=== PATIENT | female | born 1980 | race Caucasian/White ===

== ENCOUNTER 2019-12-30 09:43 | Outpatient (CLI) | payer OTHER, SELFPAY ==
--- NOTE | ~2019-12-30 | US_ITS ---
EXAMINATION: US OB <=14 wk fetus w TV DATE: 12/30/2019 10:39 INDICATION: Threatened . TECHNIQUE: Real-time transabdominal and transvaginal pelvic ultrasound was performed. COMPARISON: None. FINDINGS: TRANSABDOMINAL ULTRASOUND: The uterus measures 12.2 x 5.1 x 4.2 cm. TRANSVAGINAL ULTRASOUND: There is an intrauterine gestational sac. A yolk sac is identified. The fet al crown rump length measures 6 mm, which correlates with an estimated gestational age of 6 weeks and 3 day(s) (+/-) 4 day(s). heart motion is not detectable by M-mode Doppler. There is a small isaacs bchorionic hematoma. The right ovary measures 2.3 x 1.9 x 1.3 cm. The left ovary measures 3.2 x 1.9 x 2.4 cm. There is no free fluid in the pelvis. IMPRESSION: 1. Single intrauterine with estimated date of delivery of 08/21/2020. The lack of detectab le heart motion is not reassuring, but may sometimes be normal at this size. Serial beta-hCGs a re recommended. 2. Small subchorionic hematoma. Reviewed, dictated and finalized at location A. HER OPERATOR IMPRESSION: 1. Single intrauterine with estimated date of delivery of 08/21/2020 . The lack of detectable heart motion is not reassuring, but may sometime s be normal at this size. Serial beta-hCGs are recommended. 2. Small subchorionic hematoma.
== END 2019-12-30 09:44 | disposition home or self-care (01) ==
LOC: ANHIMG 09:44
PROVIDERS: PCP Family Medicine; Visit Provider Obstetrics & Gynecology
DX: O20.0 Threatened abortion (principal)
CPT/HCPCS: 76801; 76817

== ENCOUNTER → 2020-09-12 17:52 | Outpatient (CLI) | payer BC, SELFPAY ==
--- NOTE | ~2020-09-12 | MM_ITS ---
EXAMINATION: MM screening hunter BI w marva HISTORY: Screening TECHNIQUE: Craniocaudal and mediolateral oblique 3-D tomosynthesis images were obtained and synthetic 2-D images were generated. CAD analysis was submitted and interpreted. COMPARISON: 10/15/2018 BREAST PARENCHYMAL COMPOSITION: The breasts are heterogeneously dense, which may obscure small masses . FINDINGS: There is no evidence of suspicious mass, calcification, or architectural distortion to sugg est malignancy in either breast. There has been no suspicious interval change. IMPRESSION: 1. No mammographic evidence of malignancy. 2. Recommend routine screening mammography in one year. BI-RADS Category 1: Negative Reviewed, dictated and finalized at location A. POUNCER MACHINE OPERATOR
== END ==
PROVIDERS: Visit Provider Obstetrics & Gynecology
DX: Z12.31 Encounter for screening mammogram for malignant neoplasm of breast (principal)
CPT/HCPCS: 77063; 77067

== ENCOUNTER → 2021-12-27 15:26 | Outpatient (CLI) | payer OTHER, SELFPAY ==
--- NOTE | ~2021-12-27 | MM_ITS ---
EXAMINATION: MM screening hunter BI w marva HISTORY: Screening mammogram TECHNIQUE: Craniocaudal and mediolateral oblique 3-D tomosynthesis images were obtained and synthetic 2-D images were generated. CAD analysis was submitted and interpreted. COMPARISON: 09/2020, 10/15/2018 bilateral screening mammogram examinations BREAST PARENCHYMAL COMPOSITION: The breasts are heterogeneously dense, which may obscure small masses . FINDINGS: There is no evidence of suspicious mass, calcification, or architectural distortion to sugg est malignancy in either breast. There has been no suspicious interval change. IMPRESSION: 1. No mammographic evidence of malignancy. 2. Recommend routine screening mammography in one year. BI-RADS Category 1: Negative Reviewed, dictated and finalized at location A. K BROKER
== END ==
PROVIDERS: Visit Provider Obstetrics & Gynecology
DX: Z12.31 Encounter for screening mammogram for malignant neoplasm of breast (principal)
CPT/HCPCS: 77063; 77067

== ENCOUNTER → 2023-08-21 16:12 | Outpatient (CLI) | payer OTHER, SELFPAY ==
--- NOTE | ~2023-08-21 | MM_ITS ---
EXAMINATION: MM screening hunter BI w marva HISTORY: Screening TECHNIQUE: Craniocaudal and mediolateral oblique 3-D tomosynthesis images were obtained and synthetic 2-D images were generated. CAD analysis was submitted and interpreted. COMPARISON: Comparison to multiple prior studies sequentially, with oldest reviewed study dated 05/2018. BREAST PARENCHYMAL COMPOSITION: The breasts are heterogeneously dense, which may obscure small masses FINDINGS: There are developing bilateral breast asymmetries. There is a possible new mass medially in the left breast on CC view. There are no suspicious calcifications. IMPRESSION: 1. Developing bilateral breast asymmetries. 2. Additional mammographic views and possible breast ultrasound are recommended. BI-RADS Category 0: Incomplete: Needs additional imaging evaluation. Reviewed, dictated and finalized at location A. IMPRESSION: 1. Developing bilateral breast asymmetries. 2. Additional mammographic views and possible breast ultrasound are recommended . BI-RADS Category 0: Incomplete: Needs additional imaging evaluation.
== END ==
PROVIDERS: PCP Obstetrics & Gynecology; Visit Provider Obstetrics & Gynecology
DX: Z12.31 Encounter for screening mammogram for malignant neoplasm of breast (principal); R92.8 Other abnormal and inconclusive findings on diagnostic imaging of breast
CPT/HCPCS: 77063; 77067

== ENCOUNTER → 2023-09-15 14:16 | Outpatient (CLI) | payer OTHER, SELFPAY ==
--- NOTE | ~2023-09-15 | MMUS_ITS ---
EXAMINATION: MM diagnostic hunter BI w marva, US breast BI complete HISTORY: Follow-up bilateral breast asymmetries TECHNIQUE: Additional 3-D tomosynthesis images of the breasts were performed and synthetic 2-D images were generated. CAD analysis was submitted and interpreted. High resolution bilateral complete breas t ultrasound was performed. COMPARISON: Comparison to multiple prior studies sequentially, with oldest reviewed study dated 05/2028. BREAST PARENCHYMAL COMPOSITION: The breasts are heterogeneously dense, which may obscure small masses FINDINGS: MAMMOGRAPHIC FINDINGS: There are no suspicious masses, calcifications or architectural distortion in the right breast to sug gest malignancy. There are persistent asymmetries centered in the upper aspect of the left breast. ULTRASOUND: Complete bilateral US of all 4 quadrants of the breasts and retroareolar region was reviewed. Right breast: At 8:00 near the areola there is a 7 mm cyst. At 9:00 near the areola there is a cluste r of small cysts. At 9:00, 4.5 cm from the nipple there is an oval hypoechoic nodule measuring 3 mm w ith parallel orientation, no posterior features and no internal vascularity. Near the nipple there is a 5 mm cyst. Left breast: There the nipple there are multiple cysts, largest measuring 12 mm. At 12:00 near the ni pple there is a cluster of cysts. There is a cluster of microcysts at 12:00 near the areola measuring 9 mm. At 1:00, 4.5 cm from the nipple there is an oval hypoechoic 5 mm mass with posterior acoustic enhancement, low-level internal echoes and no internal vascularity. At 3:00, 4 cm from the nipple the re is an oval hypoechoic mass measuring 3 mm, Likely benign. At 6:00, 4 cm from the nipple there is a 3 mm cyst. There are multiple additional cysts of the left breast. IMPRESSION: 1. Probable benign bilateral sonographic masses. 2. Recommend 6 month follow-up diagnostic bilateral mammogram and targeted bilateral breast ultrasoun d. BI-RADS category 3, probably benign findings. Reviewed, dictated and finalized at location A. BREAKING MACHINE OPERATOR IMPRESSION: 1. Probable benign bilateral sonographic masses. 2. Recommend 6 month follow-up diagnostic bilateral mammogram and targeted bila teral breast ultrasound. BI-RADS category 3, probably benign findings.
== END ==
PROVIDERS: PCP Obstetrics & Gynecology; Visit Provider Obstetrics & Gynecology
DX: R92.8 Other abnormal and inconclusive findings on diagnostic imaging of breast (principal)
CPT/HCPCS: 76641; 77062; 77066; G0279

== ENCOUNTER 2024-01-29 12:33 | Outpatient (CLI) | payer OTHER, SELFPAY ==
--- NOTE | ~2024-01-29 | MR_ITS ---
MR breast BI wo/w con 01/29/2024 14:41 CDT INDICATION: Bilateral breast cysts. TECHNIQUE: MRI of the breasts perform using standard protocol pre-and post IV contrast with the follo wing sequences: Axial T2 STIR, axial T1, axial vibrant T1 with fat suppression precontrast and multip hasic postcontrast. 16 cc MultiHance administered intravenously. COMPARISON: Comparison to multiple prior studies sequentially, with oldest reviewed study dated 02/2020. FINDINGS: There are no abnormalities on the precontrast sequences. There are multiple bilateral breas t cysts. There is mild background parenchymal enhancement. No enhancing lesions following contrast a dministration. No areas of enhancement meeting threshold criteria on CAD analysis. No evidence of s ignal abnormalities in the axillary or internal mammary node distributions. LEFT BREAST: No signal abnormalities on precontrast sequences. There are multiple bilateral breast c ysts. There is mild background parenchymal enhancement. No enhancing lesions following contrast adm inistration. No areas of enhancement meeting threshold criteria on CAD analysis. No evidence of si gnal abnormalities in the axillary or internal mammary node distributions.] IMPRESSION: 1: No suspicious abnormal enhancing masses in either breast to suggest malignancy. Bilateral breast cysts. Recommend follow-up Limited bilateral breast ultrasound to assess stability of probable benign masses seen on prior ultrasound. BI-RADS CATEGORY 3-PROBABLY BENIGN FINDING RECOMMENDATION: 6 month follow up recommended. Reviewed, dictated and finalized at location A. IMPRESSION: 1: No suspicious abnormal enhancing masses in either breast to suggest maligna ncy. Bilateral breast cysts. Recommend follow-up Limited bilateral breast ultrasound to assess stability of probable benign masses seen on prior ultrasound. BI-RADS CATEGORY 3-PROBABLY BENIGN FINDING RECOMMENDATION: 6 month follow up recommended.
== END 2024-01-29 12:34 | disposition home or self-care (01) ==
PROVIDERS: PCP Obstetrics & Gynecology; Visit Provider Surgery
DX: Z12.31 Encounter for screening mammogram for malignant neoplasm of breast (principal); Z91.89 Other specified personal risk factors, not elsewhere classified; R92.8 Other abnormal and inconclusive findings on diagnostic imaging of breast
CPT/HCPCS: 77049; A9577; C8908

== ENCOUNTER 2024-06-07 08:09 | Outpatient (CLI) | payer OTHER, SELFPAY ==
--- NOTE | ~2024-06-07 | US_ITS ---
US breast BI limited INDICATION: Follow-up bilateral breast masses. TECHNIQUE: Dedicated Limited bilateral breast ultrasound COMPARISON: 09/15/2023 FINDINGS: Right breast: There are multiple simple cysts of the right breast, largest in the subareolar location at 8:00 measuring 9 mm. No suspicious solid or vascular masses. Left breast: There are multiple simple cysts of the left breast, largest at 12:00 in the subareolar l ocation measuring 12 mm. No suspicious masses in the left breast. IMPRESSION: 1: Benign bilateral breast cysts. No sonographic evidence for malignancy. Routine yearly screening mammogram and regular clinical breast examination are recommended. BI-RADS CATEGORY 2 - BENIGN FINDINGS Reviewed, dictated and finalized at location B.
== END 2024-06-07 08:10 ==
PROVIDERS: PCP Surgery; Visit Provider Surgery
DX: N60.11 Diffuse cystic mastopathy of right breast (principal); N60.12 Diffuse cystic mastopathy of left breast; Z91.89 Other specified personal risk factors, not elsewhere classified
CPT/HCPCS: 76642

== ENCOUNTER 2024-10-21 08:09 | Outpatient (CLI) | payer OTHER, SELFPAY ==
--- NOTE | ~2024-10-21 | MMUS_ITS ---
EXAMINATION: MM diagnostic hunter BI w marva, US breast BI complete HISTORY: Six-month follow-up bilateral breast masses TECHNIQUE: Additional 3-D tomosynthesis images of the breasts were performed and synthetic 2-D images were generated. CAD analysis was submitted and interpreted. High resolution bilateral complete breas t ultrasound was performed. COMPARISON: Comparison to multiple prior studies sequentially, with oldest reviewed study dated 05/2018. BREAST PARENCHYMAL COMPOSITION: Dense: The breasts are heterogeneously dense, which may obscure small masses FINDINGS: MAMMOGRAPHIC FINDINGS: There are obscured masses bilaterally in the upper outer quadrant of both breasts, not significantly changed from 09/15/2023. ULTRASOUND: Complete US of all 4 quadrants of the breast/s and retroareolar region was reviewed. There are bilate ral simple cysts of the breast corresponding to the areas of mammographic abnormality. No suspicious masses to suggest malignancy. IMPRESSION: 1. No evidence for malignancy in either breast. 2. Routine yearly screening mammogram and regular clinical breast examination are recommended. BI-RADS Category 2: Benign finding(s). Reviewed, dictated and finalized at location B. O STATION OPERATOR IMPRESSION: 1. No evidence for malignancy in either breast. 2. Routine yearly screening mammogram and regular clinical breast examination a re recommended. BI-RADS Category 2: Benign finding(s).
== END 2024-10-21 08:10 | disposition home or self-care (01) ==
PROVIDERS: PCP Obstetrics & Gynecology; Visit Provider Obstetrics & Gynecology
DX: R92.8 Other abnormal and inconclusive findings on diagnostic imaging of breast (principal)
CPT/HCPCS: 76641; 77062; 77066; G0279

== ENCOUNTER 2025-05-29 08:42 | Outpatient (CLI) | payer OTHER, SELFPAY ==
--- NOTE | ~2025-05-29 | MR_ITS ---
MR breast BI wo/w con 06/03/2025 10:53 CDT INDICATION: Clinically high risk for breast cancer. TECHNIQUE: MRI of the breasts perform using standard protocol pre-and post IV contrast with the follo wing sequences: Axial T2 STIR, axial T1, axial vibrant T1 with fat suppression precontrast and multip hasic postcontrast. 18 cc MultiHance administered intravenously. COMPARISON: Comparison to multiple prior studies sequentially, with oldest reviewed study dated 02/2020. FINDINGS: There is moderate fibroglandular tissue bilaterally. There are bilateral breast cysts. Righ t breast: There are no abnormalities on the precontrast sequences. There is moderate background paren chymal enhancement. No enhancing lesions following contrast administration. No areas of enhancement meeting threshold criteria on CAD analysis. No evidence of signal abnormalities in the axillary or internal mammary node distributions. LEFT BREAST: No signal abnormalities on precontrast sequences. There is moderate background parenchy mal enhancement. No enhancing lesions following contrast administration. No areas of enhancement m eeting threshold criteria on CAD analysis. No evidence of signal abnormalities in the axillary or i nternal mammary node distributions.] IMPRESSION: 1: Right breast: Negative. No evidence of malignancy. BI-RADS category 1. Recommend annual mammo graphy follow-up. 2: Left breast: Negative. No evidence of malignancy. BI-RADS category 1. Recommend annual mammogr aphy follow-up. Follow-up MRI may be useful for supplementing mammographic evaluation as clinically indicated. Reviewed, dictated and finalized at location A. IMPRESSION: 1: Right breast: Negative. No evidence of malignancy. BI-RADS category 1. Recommend annual mammography follow-up. 2: Left breast: Negative. No evidence of malignancy. BI-RADS category 1. Re commend annual mammography follow-up. Follow-up MRI may be useful for supplementing mammographic evaluation as clinic ally indicated.
--- OUTSIDE RECORDS SUMMARY | 2025-05-29 08:52 | XMS_ITS | Referral Summary ---
Author Organization [facility] Address [address] [place] [id number] Care Team Providers Care Auto Parts Manager Name Role Phone Jailene Stanton DO Primary Care Provider + Igor Jyoner MD Unavailable [phone] Allergies Active Allergy Reactions Criticality Noted Date Comments Amoxicillin Other (See comments) Low 09/09/2017 Medications vemtanct-swp-dvp ic acid-vit K 400-80 mcg capsule Take by mouth daily as needed Active Active Problems Problem Noted Date Diagnosed Date Abnormal mammogram of both breasts 10/20/2023 At high risk for breast cancer 10/20/2023 Family history of cancer 11/14/2020 Social History Tobacco Use Types Packs/Day Years Used Date Smoking Tobacco: Former Cigarettes Smokeless Tobacco: Never Tobacco Cessation:Counseling Given: Not Answered Alcohol Use Standard Drinks/Week Comments Yes 0 (1 standard drink = 0.6 oz pur e alcohol) Personal Safety Answer Date Recorded Getting School Help Needed Not on file 10/20 Comments No Sex and Gender Information Value Date Recorded Sex Assigned at Not on file Legal Sex Female 9:34 AM CDT Gender Identity Not on file Sexual Orientation Not on file Last Filed Vital Signs Vital Sign Reading Time Taken Comments Blood Pressure 134/76 10/20/2023 8:11 AM POUNCER MACHINE Pulse 89 10/20/2023 8:11 AM POUNCER MACHINE Temperature 37 C (98.6 F) 10/20/2023 8:11 AM POUNCER MACHINE Respiratory Rate 20 10/20/2023 8:11 AM POUNCER MACHINE Oxygen Saturation 97% 10/20/2023 8:11 AM POUNCER MACHINE Inhaled Oxygen Concentration - - Weight 73.1 kg (161 lb 3.2 oz) 10/20/2023 8:11 A M POUNCER MACHINE Height 166.4 cm (5' 5.5) 10/20/2023 8:11 AM POUNCER MACHINE Body Mass Index 26.42 10/20/2023 8:11 AM POUNCER MACHINE Plan of Treatment Not on file Insurance [employer] OPEN ACCESS [employer] OPEN ACCESS Care Teams Auto Parts Manager Relationship Specialty Start Date End Date Jailene Stanton DO [address] [place] [id number] PCP - General Family Medicine 01/20/20 Igor Joyner MD [address] [place] [address] Referring Physician Obstetrics and Gynecology 09/29/23
--- OUTSIDE RECORDS SUMMARY | 2025-05-29 08:52 | XMS_ITS | Clinical Summary ---
Author Organization [facility] [employer] Address [address] [place] [address] Care Team Providers Care Pigs Feet Cleaner Name Role Phone Unavailable Primary Care Provider Unavailabl e Source Comments [facility],non-owned Affiliates and Associated Physician Practices is amultiple site organization consisting of ambulatory clinics and hospital sitesin [place], [place]. This disclosure is being madepursuant to the Care Everywhere program and may not contain all information available regarding this patient. Last updated 18.[facility] [employer] Allergies Active Allergy Reactions Criticality Noted Date Comments Amoxicillin 09/09/2017 Medications * Be aware that medications may not be up to date on this document. Alwaysverify current medications with the patient. No known medications Social History Tobacco Use Types Packs/Day Years Used Date Smoking Tobacco: Never Smokeless Tobacco: Never Comments Unknown Sex and Gender Information Value Date Recorded Sex Assigned at Not on file Legal Sex Female 4:11 PM CDT Gender Identity Not on file Sexual Orientation Not on file Last Filed Vital Signs Vital Sign Reading Time Taken Comments Blood Pressure 112/70 09/09/2017 4:23 PM CDT Pulse 76 09/09/2017 4:23 PM CDT Temperature 36.9 C (98.4 F) 09/09/2017 4:23 PM CDT Respiratory Rate 16 09/09/2017 4:23 PM CDT Oxygen Saturation 99% 09/09/2017 4:23 PM CDT Inhaled Oxygen Concentration - - Weight 70.3 kg (155 lb) 09/09/2017 4:23 PM CDT Height 167.6 cm (5' 6) 09/09/2017 4:23 PM CDT Body Mass Index 25.02 09/09/2017 4:23 PM CDT Plan of Treatment Health Maintenance Due Date Last Done Comments LIPID TESTING 1982 MAMMOGRAM 1982 HIV SCREENING 1997 HEPATITIS C SCREENING 12/24/2000 DTAP/TDAP/TD VACCINES (1 - Tdap) 2001 HEPATITIS B VACCINE (1 of 3 - 19+ 3-dose series) 2001 HPV VACCINE (1 - 3-dose SCDM series) 2009 COVID-19 VACCINE (1 - 2023-2 5 season) 2024 DEPRESSION SCREENING 11/09/2024 INFLUENZA VACCINE (#1) 2025 ZOSTER VACCINE (1 of 2) 2032 HIB VACCINE Aged Out No longer eligi ble based on patient's age to complete this topic MENINGOCOCCAL (Group B) VACC INE SHARED DECISION-MAKING Aged Out No longer eligibl e based on patient's age to complete this topic MENINGOCOCCAL GROUPS A/C/Y/W VACCINE Aged Out No longer eligible b ased on patient's age to complete this topic PNEUMOCOCCAL VACCINE Aged Out No long er eligible based on patient's age to complete this topic Insurance [facility]
--- OUTSIDE RECORDS SUMMARY | 2025-05-29 08:52 | XMS_ITS | Clinical Summary ---
Author Organization [facility] Address [address] [place] [id number] Care Team Providers Care Pickle Solution Maker Name Role Phone Jailene Stanton DO Primary Care Provider + Igor Joyner MD Unavailable [phone] Allergies Active Allergy Reactions Criticality Noted Date Comments Amoxicillin Other (See comments) Low 09/09/2017 Medications snuuznfq-[id number]-nai ic acid-vit K 400-80 mcg capsule Take by mouth daily as needed Active Active Problems Problem Noted Date Diagnosed Date Abnormal mammogram of both breasts 10/20/2023 At high risk for breast cancer 10/20/2023 Family history of cancer 11/14/2020 Family History Medical History Relation Name Comments Breast cancer Mother Relation Name Status Comments Mother Social History Tobacco Use Types Packs/Day Years [...] on file Sexual Orientation Not on file Obstetrics History Para Term AB IAB SAB Ectopic Multiple Livin g Live Births 1 Date Outcome GA Total Labor Labor/2nd/3rd Weight Sex Type Anes PTL Nicole A1 A5 Name Clin Last Filed Vital Signs Vital Sign Reading Time Taken Comments Blood Pressure 134/76 10/20/2023 8:11 AM PHONE SCREENER Pulse 89 10/20/2023 8:11 AM PHONE SCREENER Temperature 37 C (98.6 F) 10/20/2023 8:11 AM PHONE SCREENER Respiratory Rate 20 10/20/2023 8:11 AM PHONE SCREENER Oxygen Saturation 97% 10/20/2023 8:11 AM PHONE SCREENER Inhaled Oxygen Concentration - - Weight 73.1 kg (161 lb 3.2 oz) 10/20/2023 8:11 A M PHONE SCREENER Height 166.4 cm (5' 5.5) 10/20/2023 8:11 AM PHONE SCREENER Body Mass Index 26.42 10/20/2023 8:11 AM PHONE SCREENER Plan of Treatment Health Maintenance Due Date Last Done Comments Breast Cancer Screening-Mammogram 1982 Cervical Cancer Screening 1982 Depression Screening 1982 Hepatitis C Screening 1982 DTaP/Tdap/Td Vaccine (1 - Tdap) 1993 Varicella Vaccines (1 of 2 - 13+ 2-dose series) 1995 Hepatitis B Screening 2000 Regular Well Visit/Exam 18-64 2000 Influenza Vaccine (Season Ended) 2025 HPV Vaccines Aged Out No longer eligi ble based on patient's age to complete this topic Pneumococcal vaccine <65 Aged Out No longer eligible based on patient's age to complete this topic Insurance [employer] OPEN ACCESS [employer] OPEN ACCESS Care Teams Pickle Solution Maker Relationship Specialty Start Date End Date Jailene Stanton DO [address] [place] [id number] PCP - General Family Medicine 01/20/20 Igor Joyner MD [address] [place] [id number] Referring Physician Obstetrics and Gynecology 09/29/23
--- OUTSIDE RECORDS SUMMARY | 2025-05-29 08:52 | XMS_ITS | Clinical Summary ---
Author Organization [facility] Address [address] [place] [id number] Care Team Providers Care Vault Clerk Name Role Phone None, Provider MD Primary Care Provider Unavaila ble Social History Tobacco Use Types Packs/Day Years Used Date Smoking Tobacco: Never Assessed Comments Unknown Sex and Gender Information Value Date Recorded Sex Assigned at Not on file Legal Sex Female 6:00 PM PROOFER APPRENTICE Gender Identity Not on file Sexual Orientation Not on file Plan of Treatment Health Maintenance Due Date Last Done Comments Cervical Cancer Screening Pa p Smear (Age 30 to 64) Every 3 Years 1982 Annual Physical 1985 Hepatitis C 2000 DTaP, Tdap and Td Vaccines ( 1 - Tdap) 2001 Hepatitis B Vaccines (1 of 3 - 19+ 3-dose series) 2001 Cervical Cancer Screening Pa p with HPV Testing (Age 30 to 64) Every 5 Years 2012 Cervical Cancer Screening with HPV 2012 Mammogram Screening 2022 COVID-19 Vaccine ( - 2023-2 5 season) 2024 HPV Vaccines Aged Out No longer eligi ble based on patient's age to complete this topic Meningococcal B Vaccine Aged Out No l onger eligible based on patient's age to complete this topic Meningococcal Vaccine Aged Out No jostin keli eligible based on patient's age to complete this topic Pneumococcal Vaccine: Pediat rics (0 to 5 Years) and At-Risk Patients (6 to 49 Years) Aged Out No longer eligible b ased on patient's age to complete this topic RSV Immunizations Under 20 Months Aged Out No longer eligible based on patient's age to complete this topic Insurance Care Teams Vault Clerk Relationship Specialty Start Date End Date None, Provider, PCP - General 08/16/19
== END 2025-05-29 08:43 | disposition home or self-care (01) ==
PROVIDERS: PCP Obstetrics & Gynecology; Visit Provider Surgery
DX: Z12.39 Encounter for other screening for malignant neoplasm of breast (principal); N63.10 Unspecified lump in the right breast, unspecified quadrant; N63.20 Unspecified lump in the left breast, unspecified quadrant; Z91.89 Other specified personal risk factors, not elsewhere classified
CPT/HCPCS: 77049; A9577; C8908